=== PATIENT | male | born 1980 | race Caucasian/White ===

== ENCOUNTER 2022-11-06 15:35 | Outpatient (REF) | payer BC, SELFPAY ==
[2022-11-06 20:59] LABS: HCT 44.8 % (40.0-50.0); HGB 14.9 g/dL (13.5-17.5); MCH 27.5 pg (27.0-33.0); MCHC 33.3 % (32.0-36.0); MCV 83 fL (80-95); MPV 11.1 fL (8.0-11.0); Platelet Count 280 10^3/uL (130-400); RBC 5.42 10^6/uL (4.36-5.78); RDW 12.2 % (11.8-14.1); RDW-SD 37.1 fL; WBC 8.04 10^3/uL (4.4-10.8)
[2022-11-06 21:15] LABS: Hemoglobin A1C 5.3 % (<5.7)
[2022-11-06 21:24] LABS: ALT 29 U/L (16-63); AST 16 U/L (15-37); Alkaline Phosphatase 67 U/L (46-116); BUN 20 mg/dL (7-18); Bilirubin, Total 0.5 mg/dL (0.2-1.0); CREATININE 0.9 mg/dL (0.70-1.30); Calcium 9.6 mg/dL (8.5-10.1); Calculated LDL 54 mg/dL (<100); Chloride 102 mmol/L (98-107); Cholesterol 141 mg/dL (<200); Estimated GFR 110.04 (mL/min/1.73m2); Glucose 93 mg/dL (74-106); HDL Cholesterol 48 mg/dL (40-60); Sodium 139 mmol/L (136-145); TSH 2.33 uIU/mL (0.36-3.74); Total Protein 7.8 g/dL (6.4-8.2); Triglyceride 199 mg/dL (<150)
== END 2022-11-06 15:36 | disposition home or self-care (01) ==
LOC: NCHCN 15:35
PROVIDERS: PCP Registered Nurse; Visit Provider Registered Nurse
DX: Z00.00 Encounter for general adult medical examination without abnormal findings (principal); K62.5 Hemorrhage of anus and rectum; E66.09 Other obesity due to excess calories; Z13.1 Encounter for screening for diabetes mellitus; Z13.29 Encounter for screening for other suspected endocrine disorder
CPT/HCPCS: 80053; 80061; 85027; 83036; 84443

== ENCOUNTER 2023-04-14 18:14 | Outpatient (REF) | payer BC, SELFPAY ==
[2023-04-14 15:43] LABS: Anion Gap 6.6 mmol/L (3-11); BUN 12 mg/dL (7-18); CO2 29.4 mmol/L (21.0-32.0); CREATININE 0.9 mg/dL (0.70-1.30); Calcium 9.7 mg/dL (8.5-10.1); Chloride 103 mmol/L (98-107); Estimated GFR 110.04 (mL/min/1.73m2); Glucose 102 mg/dL (74-106); Potassium 4.5 mmol/L (3.5-5.1); Sodium 139 mmol/L (136-145)
== END 2023-04-14 18:15 | disposition home or self-care (01) ==
LOC: NCHCN 18:14
PROVIDERS: PCP Registered Nurse; Visit Provider Registered Nurse
DX: I10 Essential (primary) hypertension (principal); R21 Rash and other nonspecific skin eruption
CPT/HCPCS: 80048